=== PATIENT | female | born 1965 | race Caucasian/White ===

== ENCOUNTER 2024-06-26 07:03 | Emergency (ER) | payer BC ==
[~2024-06-26] VITALS: Ht 162.5 cm; Wt 82.6 kg
[~2024-06-26 07:03] MED LIST: ALBUTEROL0.09 MG/A2 INH; AMOXICILLIN500 M2 PO; ASPIRIN CHEWABL81 MG PO; ATIVAN1 MG PO; DIFLUCAN150 MG PO; EMSAM TD; EMSAM12 MG/24 H TD; ESTRADIOL1 MG PO; FLEXERIL10 MG PO; GABAPENTIN100 M1 PO; GABAPENTIN800 MG PO; INDERAL LA60 M1 PO; MAGNESIUM250 M1 PO; MOTRIN800 MG PO; MULTIVITAMIN1 CTB PO; NORTRIPTYLINE25 MG PO; OMEPRAZOLE40 MG PO; PHENERGAN25 M3 PO; PREDNICOT10 MG PO; REGLAN10 M1 PO; ROBITUSSIN AC 110 ML PO; SEROQUEL XR50 MG PO; SONATA10 MG PO; TESTOSTERONE; TYLENOL W/CODEI1 TA4 PO; ZITHROMAX Z PA250 MG PO; ZYPREXA10 MG PO
[2024-06-26] MEDS ORDERED: VERAPAMIL HCL180 M1 PO (07:19)
[2024-06-26] MEDS ORDERED: ROSUVASTATIN CA10 MG PO (07:19)
[2024-06-26] MEDS ORDERED: PEPCID40 MG PO (07:20)
[2024-06-26] MEDS ORDERED: PROTONIX20 MG PO (07:20)
[2024-06-26] MEDS ORDERED: HYDR25T PO (07:20)
[2024-06-26] MEDS ORDERED: VYVANSE70 MG PO (07:21)
[2024-06-26] MEDS ORDERED: BUPROPION75 MG PO (07:21)
[2024-06-26] MEDS ORDERED: BUSPIRONE10 MG PO (07:21)
[2024-06-26] MEDS ORDERED: AUVELITY ER 451 EACH PO (07:22)
[2024-06-26] MEDS ORDERED: TOPROL XL25 MG PO (07:22)
[2024-06-26] MEDS ORDERED: DAILY VITAMIN1 EAC1 PO (07:23)
[2024-06-26] MEDS ORDERED: ATIVAN0.5 MG PO (07:23)
[2024-06-26] MEDS ORDERED: FISH OIL 1,0001 EAC1 PO (07:23)
[2024-06-26] MEDS ORDERED: Dexamethasone Sodium Phospha 20 MG/5 ML VIAL PO ONE (07:40)
[2024-06-26] MEDS ORDERED: DECADRON4 MG PO (08:42)
== END 2024-06-26 08:50 | disposition home or self-care (01) ==
LOC: ED 07:03
DX: J04.0 Acute laryngitis (principal); K21.9 Gastro-esophageal reflux disease without esophagitis; F41.9 Anxiety disorder, unspecified; F32.A Depression, unspecified; G43.909 Migraine, unspecified, not intractable, without status migrainosus; Z90.49 Acquired absence of other specified parts of digestive tract; Z90.710 Acquired absence of both cervix and uterus; Z98.890 Other specified postprocedural states